=== PATIENT | female | born 1990 | race Caucasian/White ===

== ENCOUNTER 2019-07-21 22:07 | Emergency (ER) | payer SELFPAY ==
[~2019-07-21] VITALS: Ht 162.6 cm; Wt 54.4 kg
[2019-07-21 22:25] VITALS: BP 119/69; Ht 162.6 cm; Wt 54.4 kg
[2019-07-21 23:35] LABS: BASOPHIL % 0.4 % (0-2); PLATELET COUNT 250 x10^3mcL (130-400); RED CELL DISTRIBUTION WIDTH 13.8 % (11.5-14.5)
[2019-07-21 23:43] LABS: CALCIUM 8.4 mg/dL (8.5-10.1); CARBON DIOXIDE 19.3 mmol/L (21-32); CHLORIDE SERUM 102 mmol/L (98-107); CREATININE SERUM 0.5 mg/dL (0.6-1.0); GFR1 > 60 mL/min; GLUCOSE SERUM 67 mg/dL (74-106); POTASSIUM SERUM 3.3 mmol/L (3.5-5.1); SODIUM SERUM 137 mmol/L (136-145)
[2019-07-21 23:47] LABS: ALBUMIN 3.6 g/dL (3.4-5.0); ALKALINE PHOSPHATASE 43 U/L (46-116); ALT/SGPT 30 U/L (14-59); AST/SGOT 20 U/L (15-37); BILIRUBIN TOTAL 0.8 mg/dL (0.20-1.00); TOTAL PROTEIN, SERUM 7.1 g/dL (6.4-8.2)
== END 2019-07-22 01:42 | disposition left against medical advice (07) ==
LOC: ED 22:07
PROVIDERS: Emergency Medicine
DX: O20.0 Threatened abortion (principal); O99.511 Diseases of the respiratory system complicating pregnancy, first trimester; O99.341 Other mental disorders complicating pregnancy, first trimester; J45.909 Unspecified asthma, uncomplicated; F31.9 Bipolar disorder, unspecified; F12.90 Cannabis use, unspecified, uncomplicated; Z3A.01 Less than 8 weeks gestation of pregnancy; Z98.890 Other specified postprocedural states
CPT/HCPCS: 36415; G0480; J3411; J7030

== ENCOUNTER 2019-07-22 02:06 | Emergency (ER) | payer OTHER ==
[~2019-07-22] VITALS: Ht 165.1 cm; Wt 63.5 kg
[2019-07-22 02:16] VITALS: Ht 165.1 cm; Wt 63.5 kg
[2019-07-22 02:45] VITALS: BP 123/91
== END 2019-07-22 02:45 | disposition other institution (70) ==
LOC: ED 02:06
DX: Z02.89 Encounter for other administrative examinations (principal)